=== PATIENT | female | born 1990 | race Caucasian/White ===

== ENCOUNTER 2020-11-08 01:32 | Emergency (ER) | payer OTHER ==
[~2020-11-08] VITALS: Ht 154.9 cm; Wt 40.4 kg
--- NOTE | 2020-11-08 03:01 | NUR ---
geotechnician at bedside
[2020-11-08 03:15] VITALS: BP 121/40
--- NOTE | 2020-11-08 03:15 | NUR ---
Patient discharged to home in stable condition. Written and verbal after care instructions given. Patient verbalizes understanding of instructions. Stressed follow up or return to ER for worsening s/s. All belongings with patient. VSS. Steady gait.
== END 2020-11-08 03:16 | disposition home or self-care (01) ==
LOC: ER 01:39
DX: S50.12XA Contusion of left forearm, initial encounter (principal); X58.XXXA Exposure to other specified factors, initial encounter; Y92.89 Other specified places as the place of occurrence of the external cause; M79.632 Pain in left forearm; D50.9 Iron deficiency anemia, unspecified; S62.102D Fracture of unspecified carpal bone, left wrist, subsequent encounter for fracture with routine healing; X58.XXXD Exposure to other specified factors, subsequent encounter
CPT/HCPCS: A4663